=== PATIENT | female | born 1980 | race Caucasian/White ===

== ENCOUNTER 2018-06-11 13:15 | Inpatient (IN) | payer MEDICAID ==
[~2018-06-11] VITALS: Ht 162.6 cm; Wt 76.2 kg
[2018-06-11] MEDS ORDERED: LR 1,000 ML IV SCH (14:19)
[2018-06-11] MEDS ORDERED: LR 1,000 ML IV ONE (14:19)
[2018-06-11] MEDS ORDERED: OXYTOCIN/0.9 % SODIUM CHLORIDE 1,000 ML IV SCH (14:19)
[2018-06-11] MEDS ORDERED: TERBUTALINE SULFATE 1 MG/ML VIAL SUBCUT ONE (14:30)
[2018-06-11] MEDS ORDERED: AMPICILLIN SODIUM 2 GM in NS 100 ML IV ONE (14:30)
[2018-06-11] MEDS ORDERED: NALBUPHINE HCL 10 MG/ML AMP IVP PRN (14:30)
[2018-06-11] MEDS ORDERED: AMPICILLIN SODIUM 2 GM VIAL ONE (14:42)
[2018-06-11 14:50] LABS: BASOPHILS # (AUTO) 0.1 K/uL (0.0-0.2); BASOPHILS % (AUTO) 0.7 % (0.0-2.0); EOSINOPHILS # (AUTO) 0.1 K/uL (0.0-0.4); EOSINOPHILS % (AUTO) 1.2 % (0.0-4.0); HEMATOCRIT 39.2 % (36-48); HEMOGLOBIN 13.1 g/dL (12.0-16.0); LYMPHOCYTES # (AUTO) 2.6 K/uL (1.0-5.5); LYMPHOCYTES % (AUTO) 27.2 % (20.5-51.5); MEAN CORPUSCULAR HEMOGLOBIN 31 pg (27-31); MEAN CORPUSCULAR HGB CONC 33 % (32-36); MEAN CORPUSCULAR VOLUME 94 fL (79.0-98.0); MONOCYTES # (AUTO) 0.3 K/uL (0.0-1.0); MONOCYTES % (AUTO) 2.9 % (1.7-9.3); NEUTROPHILS # (AUTO) 6.6 K/uL (1.8-7.7); RED BLOOD CELL COUNT(AUTO) 4.19 MIL/uL (4.2-6.2); RED CELL DISTRIBUTION WIDTH 12.3 % (9.0-15.0); WHITE BLOOD COUNT (AUTO) 9.7 K/uL (4.8-10.8)
[2018-06-11] MEDS ORDERED: fentaNYL CITRATE/PF 100 MCG/2 ML AMP ONE (14:56)
[2018-06-11] MEDS ORDERED: ROPIVACAINE 0.2% 100 ML ONE (14:56)
[2018-06-11 15:06] LABS: PLATELET COUNT (AUTO) 125 K/uL (130-430)
[2018-06-11] MEDS ORDERED: LR 500 ML IV ONE (15:27)
[2018-06-11] MEDS ORDERED: FENT2mCg/mL-ROPIVA0.2%/NS EPID 150 ML EP SCH (15:30)
[2018-06-11] MEDS ORDERED: ePHEDrine sulfate 50 MG/ML VIAL ONE (15:35)
[2018-06-11 15:44] VITALS: BP_SYST 118
[2018-06-11] MEDS ORDERED: AMPICILLIN SODIUM 1 GM in NS 50 ML IV SCH (18:30)
[2018-06-12] MEDS ORDERED: OXYTOCIN/0.9 % SODIUM CHLORIDE 1,000 ML IV ONE (00:27)
[2018-06-12] MEDS ORDERED: OXYTOCIN/0.9 % SODIUM CHLORIDE 1,000 ML IV SCH (00:27)
[2018-06-12] MEDS ORDERED: DOCUSATE SODIUM 100 MG CAPSULE PO PRN (00:30)
[2018-06-12] MEDS ORDERED: ANUSOL 1 EA SUPP.RECT (PREPARATION H) RC PRN (00:30)
[2018-06-12] MEDS ORDERED: WITCH HAZEL LEAF 1 MED.PAD MED.PAD TP PRN (00:30)
[2018-06-12] MEDS ORDERED: METHYLERGONOVINE MALEATE 0.2 MG TABLET PO PRN (00:30)
[2018-06-12] MEDS ORDERED: DERMOPLAST SPRAY TP PRN (00:30)
[2018-06-12] MEDS ORDERED: SENNOSIDES/DOCUSATE SODIUM 1 TAB TABLET(SENOKOT-S) PO PRN (00:30)
[2018-06-12] MEDS ORDERED: MEASLES,MUMPS&RUBELLA VACC/PF 12500 UNIT/0.5 ML VIAL SUBQ PRN (00:30)
[2018-06-12] MEDS ORDERED: RHO(D) IMMUNE GLOBULIN/MALTOSE 1500 UNITS/1.3 ML (WINHRO) IM PRN (00:30)
[2018-06-12] MEDS ORDERED: LANOLIN 7 GM OINT. TP PRN (00:30)
[2018-06-12] MEDS ORDERED: DIPH-TET-PERTUS Vaccine 0.5 ML VIAL (ADACEL) I.M. PRN (00:30)
[2018-06-12] MEDS ORDERED: HYDROCORTISONE 0.5%, 28.35 GM TOPICAL CREAM TP PRN (00:30)
[2018-06-12] MEDS ORDERED: OXYCODONE/ACETAMINOPHEN 5-325 TABLET PO PRN (00:30)
[2018-06-12] MEDS ORDERED: IBUPROFEN 600 MG TABLET PO ONE (00:45)
[2018-06-12] MEDS ORDERED: IBUPROFEN 600 MG TABLET PO SCH (01:30)
[2018-06-12] MEDS: IBUPROFEN 600 MG TABLET PO SCH ×4 (06:05→23:50)
[2018-06-12] MEDS: OXYCODONE/ACETAMINOPHEN 5-325 TABLET PO PRN ×2 (10:07→23:58)
[2018-06-12] MEDS ORDERED: TEMAZEPAM 15 MG CAPSULE PO PRN (21:00)
[2018-06-13] MEDS: IBUPROFEN 600 MG TABLET PO SCH ×2 (06:03→14:12)
[2018-06-13 09:02] LABS: HEMATOCRIT 38.6 % (36-48); HEMOGLOBIN 13.1 g/dL (12.0-16.0)
== END 2018-06-13 15:10 | disposition home or self-care (01) | DRG 560 ==
LOC: SPU 13:15
PROVIDERS: ADMIT Obstetrics & Gynecology; ATTEND Obstetrics & Gynecology
PROC: 10E0XZZ Delivery of Products of Conception, External Approach (ICD-10-PCS; principal; 2018-06-11)
PROC: 3E0R3BZ Introduction of Anesthetic Agent into Spinal Canal, Percutaneous Approach (ICD-10-PCS; 2018-06-11)
PROC: 00HU33Z Insertion of Infusion Device into Spinal Canal, Percutaneous Approach (ICD-10-PCS; 2018-06-11)
DX: O42.92 Full-term premature rupture of membranes, unspecified as to length of time between rupture and onset of labor (principal); Z37.0 Single live birth; Z3A.36 36 weeks gestation of pregnancy
CPT/HCPCS: 36415; 81002-TC; 85018-TC; 85025; 86886; 86900; 86901; 90715; J0290; J2795; J3010; J7060